=== PATIENT | male | born 1965 | race Caucasian/White ===

== ENCOUNTER 2018-02-21 20:47 | Emergency (ER) | payer OTHER ==
[~2018-02-21] VITALS: Ht 185.4 cm; Wt 78.6 kg
[2018-02-21 21:23] VITALS: BP 138/76
== END 2018-02-21 21:34 ==
LOC: EME 20:47
DX: F10.129 Alcohol abuse with intoxication, unspecified (principal); Y90.9 Presence of alcohol in blood, level not specified; I10 Essential (primary) hypertension; F17.200 Nicotine dependence, unspecified, uncomplicated; Z85.89 Personal history of malignant neoplasm of other organs and systems; Z88.5 Allergy status to narcotic agent
CPT/HCPCS: 99281; 99283